=== PATIENT | female | born 1945 | race Caucasian/White ===

== ENCOUNTER → 2024-01-20 10:03 | Outpatient (REF) | payer MEDICARE, OTHER, SELFPAY ==
[2024-01-20 13:04] LABS: ALT (SGPT) 18 U/L (0-35); AST (SGOT) 21 U/L (14-36); Albumin 4.2 g/dl (3.5-5.0); Alkaline Phosphatase 106 U/L (38-126); Blood Urea Nitrogen 18 mg/dl (7-17); Calcium 9.9 mg/dl (8.4-10.2); Carbon Dioxide 25 mmol/L (22-30); Chloride 105 mmol/L (98-107); Glucose 91 mg/dl (70-99); HDL Cholesterol 60 mg/dl; LDL Cholesterol, Calculated 115 mg/dl; Potassium 4.5 mmol/L (3.5-5.1); Sodium 139 mmol/L (135-145); Total Bilirubin 0.4 mg/dl (0.2-1.3); Total Cholesterol 193 mg/dl (50-199); Total Protein 7.4 g/dl (6.3-8.2); Triglyceride 92 mg/dl (10-149); Very Low Density Lipoprotein 18 mg/dl (0-30); eGFR > 60.00
[2024-01-20 13:18] LABS: TSH Reflex To Free T4 3.14 uIU/ml (0.47-4.68)
[2024-01-20 13:28] LABS: % Basophils 1.2 % (0-2); % Eosinophils 2.4 % (0-6); % Immature Granulocytes 0.1 % (0-0.5); % Lymphocytes 34.4 % (20.5-51.1); % Monocytes 5.9 % (1.7-9.3); Absolute Basophils 0.1 10^3/uL (0-0.2); Absolute Eosinophils 0.2 10^3/uL (0-0.7); Absolute Lymphocytes 2.3 10^3/uL (1.2-3.4); Absolute Monocytes 0.4 10^3/uL (0.1-0.6); Absolute Neutrophils 3.8 10^3/uL (1.4-6.5); Hematocrit 42.2 % (37.0-47.0); Hemoglobin 14.1 g/dL (12.0-16.0); Mean Corp Hgb Conc. 33.4 g/dL (33.0-37.0); Mean Corpuscular Hgb 30.6 pg (27.0-31.0); Mean Corpuscular Volume 91.5 fL (81.0-99.0); Mean Platelet Volume 11.6 fL (7.4-10.4); Nucleated Red Blood Cells % 0 %; Platelet Count 288 10^3/uL (130-400); Red Blood Cell Count 4.61 10^6/uL (4.20-5.40); Red Cell Dist. Width 12.5 % (11.5-14.5); White Blood Cell Count 6.8 10^3/uL (4.8-10.8)
== END ==
LOC: HWLAB 10:03
PROVIDERS: ATTENDING PHYSICIAN Family Medicine
DX: E78.2 Mixed hyperlipidemia (principal); I10 Essential (primary) hypertension; E04.1 Nontoxic single thyroid nodule
CPT/HCPCS: 36415; 80053; 80061; 84443; 85025

== ENCOUNTER → 2024-02-23 13:34 | Outpatient (REF) | payer MEDICARE, OTHER, SELFPAY | LOC: HWRAD 13:34 | PROVIDERS: ATTENDING PHYSICIAN Family Medicine | DX: Z12.31 Encounter for screening mammogram for malignant neoplasm of breast (principal); M81.0 Age-related osteoporosis without current pathological fracture | CPT/HCPCS: 77063; 77067; 77080 ==

== ENCOUNTER → 2024-04-12 06:44 | Outpatient (REF) | payer MEDICARE, OTHER, SELFPAY ==
[2024-04-12 09:26] LABS: % Basophils 1.1 % (0-2); % Eosinophils 2.4 % (0-6); % Immature Granulocytes 0.3 % (0-0.5); % Lymphocytes 36.1 % (20.5-51.1); % Monocytes 6.3 % (1.7-9.3); % Neutrophils 53.8 % (42.2-75.2); Absolute Basophils 0.1 10^3/uL (0-0.2); Absolute Eosinophils 0.2 10^3/uL (0-0.7); Absolute Lymphocytes 2.4 10^3/uL (1.2-3.4); Absolute Monocytes 0.4 10^3/uL (0.1-0.6); Absolute Neutrophils 3.5 10^3/uL (1.4-6.5); Hematocrit 42.5 % (37.0-47.0); Hemoglobin 14.3 g/dL (12.0-16.0); Mean Corp Hgb Conc. 33.6 g/dL (33.0-37.0); Mean Corpuscular Hgb 30.6 pg (27.0-31.0); Mean Corpuscular Volume 90.8 fL (81.0-99.0); Mean Platelet Volume 10.9 fL (7.4-10.4); Nucleated Red Blood Cells % 0 %; Platelet Count 295 10^3/uL (130-400); Red Blood Cell Count 4.68 10^6/uL (4.20-5.40); Red Cell Dist. Width 12.4 % (11.5-14.5); White Blood Cell Count 6.5 10^3/uL (4.8-10.8)
[2024-04-12 09:45] LABS: Blood Urea Nitrogen 20 mg/dl (7-17); Calcium 9.7 mg/dl (8.4-10.2); Carbon Dioxide 30 mmol/L (22-30); Chloride 105 mmol/L (98-107); Glucose 95 mg/dl (70-99); Potassium 4.4 mmol/L (3.5-5.1); Sodium 142 mmol/L (135-145); eGFR > 60.00
== END ==
LOC: HWLAB 06:44
PROVIDERS: ATTENDING PHYSICIAN Orthopaedic Surgery; FAMILY PHYSICIAN Family Medicine
DX: Z01.818 Encounter for other preprocedural examination (principal)
CPT/HCPCS: 36415; 80048; 85025

== ENCOUNTER → 2024-05-05 10:55 | Outpatient (REF) | payer MEDICARE, OTHER, SELFPAY | LOC: RAD 10:55 | PROVIDERS: ATTENDING PHYSICIAN Internal Medicine Cardiovascular Disease; FAMILY PHYSICIAN Family Medicine | DX: R00.0 Tachycardia, unspecified (principal); R60.0 Localized edema; R60.9 Edema, unspecified | CPT/HCPCS: 36415; 80069; 84439; 84443; 93971 ==

== ENCOUNTER → 2024-05-16 08:24 | Outpatient (REF) | payer MEDICARE, OTHER, SELFPAY | LOC: HWRCS 08:24 | PROVIDERS: ATTENDING PHYSICIAN Internal Medicine Cardiovascular Disease; FAMILY PHYSICIAN Family Medicine | DX: R00.0 Tachycardia, unspecified (principal); R60.0 Localized edema; R94.31 Abnormal electrocardiogram [ECG] [EKG] | CPT/HCPCS: 93306 ==

== ENCOUNTER → 2024-07-21 07:15 | Outpatient (REF) | payer MEDICARE, OTHER, SELFPAY ==
[2024-07-21 10:21] LABS: ALT (SGPT) 17 U/L (0-35); AST (SGOT) 23 U/L (14-36); Albumin 4.2 g/dl (3.5-5.0); Alkaline Phosphatase 107 U/L (38-126); Blood Urea Nitrogen 21 mg/dl (7-17); Calcium 10.1 mg/dl (8.4-10.2); Carbon Dioxide 29 mmol/L (22-30); Chloride 105 mmol/L (98-107); Glucose 93 mg/dl (70-99); HDL Cholesterol 58 mg/dl; LDL Cholesterol, Calculated 137 mg/dl; Potassium 4.3 mmol/L (3.5-5.1); Sodium 143 mmol/L (135-145); Total Bilirubin 0.4 mg/dl (0.2-1.3); Total Cholesterol 218 mg/dl (50-199); Triglyceride 117 mg/dl (10-149); Very Low Density Lipoprotein 23 mg/dl (0-30); eGFR > 60.00
[2024-07-21 10:42] LABS: TSH Reflex To Free T4 2.95 uIU/ml (0.47-4.68)
== END ==
LOC: HWLAB 07:15
PROVIDERS: ATTENDING PHYSICIAN Family Medicine
DX: E04.1 Nontoxic single thyroid nodule (principal); E78.2 Mixed hyperlipidemia
CPT/HCPCS: 36415; 80053; 80061; 84443

== ENCOUNTER 2024-11-25 10:50 | Emergency (ER) | payer MEDICARE, OTHER, SELFPAY ==
[2024-11-25 11:04] VITALS: BP 159/74
--- NOTE | 2024-11-25 12:48 | ED.GENMED ---
History of Present Illness
<Joselyn Roach MD, Resident - Last Filed: 11/25/24 14:06>
General
Chief Complaint: Extremity Pain (non-traumatic)
Source: patient and family
Exam Limitations: none
Time Seen by Provider: 11/25/24 12:22
Nursing documentation reviewed up to this point in time: agreed with
History of Present Illness
History of Present Illness:
79yo F with [facility] arthritis, s/p R hip replacement 04/2024 who presents from home to ED for right foot pain/swelling. She denies inciting incident or recent injury to foot. The pain began a few days ago and was initially intermittent, then gradually
worsened became constant yesterday She also noticed worsening swelling over the past few days. She has tried ibuprofen, ice, and compression wrapping with slight relief. Aggravating factors include weight bearing, though she is still able to
ambulate using cane/walker. At time of evaluation, she and her say the pain/swelling improved slightly compared to last night. She denies anything like this in the past.
Past History
<Joselyn Roach MD, Resident - Last Filed: 11/25/24 14:06>
Past History
ED Past Medical History: Arrthythmia (chronic tachycardia), HTN and Other (arthritis)
ED Past Surgical History: Orthopedic (right hip replacement 04/2024)
Patient has exhibited threatening behavior?: No
Social History
Tobacco: Non-smoker
Alcohol: None
Drug: None
Personal:
Living: with family
Family History
Family History: Other (noncontributory)
Review of Systems
<Joselyn Roach MD, Resident - Last Filed: 11/25/24 14:06>
Review of Systems
Allergies reviewed?: Yes
Constitutional: Reports no symptoms; Denies fever or chills
EENT: Reports no symptoms
Respiratory: Reports no symptoms; Denies cough or trouble breathing
Cardiac: Reports no symptoms; Denies chest pain or palpitations
ABD/GI: Reports no symptoms; Denies abdominal pain, nausea, vomiting, diarrhea, constipated, bloody stools or black stools
: Reports no symptoms; Denies dysuria or incontinence
Musculoskeletal: Reports other (see HPI)
Skin: Reports no symptoms
Neurological: Reports no symptoms; Denies dizzy or weakness
Endocrine: Reports no symptoms
Hematologic/Lymphatic: Reports no symptoms
Psychiatric: Reports no symptoms
Phy Exam
<Joselyn Roach MD, Resident - Last Filed: 11/25/24 14:06>
Physical Exam
Physical Exam:
medial right foot with mild tenderness to palpation, erythema, slight edema
bilateral lower extremities with +1 pitting edema symmetric, 5/5 strength, ROM intact, sensation intact, dorsalis pedal pulses intact
no calf tenderness, alma rosa sign negative
General Physical Exam
General Presentation: well appearing and no apparent distress
General age: appears stated age
General Skin: warm and dry
General Habitus: normal
General Mental: alert
General Hydration: appears well hydrated
Cardiovascular Exam
Cardiovascular Exam: regular rate/rhythm and no murmur
Pulmonary Exam
Pulmonary Exam: lungs clear, no respiratory distress, no crackles, no wheezing and no cough
Oxygen Status: room air
Gastrointestinal Exam
Gastrointestinal Exam: normal bowel sounds, non tender, soft and non distended
Neurological Exam
Neurological Exam: alert, oriented x3, no motor deficits and no sensory deficits
Musculoskeletal Exam
Musculoskeletal Exam: full ROM
Psychiatric Exam
Psychiatric Exam: normal mood/affect
Course
<Joselyn Roach MD, Resident - Last Filed: 11/25/24 14:06>
Orders/Labs/Results
Orders:
Orders
11/25/24 11:07
CR Foot - Right Min 3 Views Urgent
Comment:
Reason For Exam: pain, swelling
11/25/24 13:28
Prednisone [Deltasone] 40 mg PO NOW STA
Vital Signs
Initial and Last Documented VS:
Initial Vital Signs
Temp Pulse Resp BP Pulse Ox
97.9 F 61 18 159/74 97
11/25/24 11:04 11/25/24 11:04 11/25/24 11:04 11/25/24 11:04 11/25/24 11:04
Last Documented Vital Signs
Temp Pulse Resp BP Pulse Ox
97.9 F 61 18 159/74 97
11/25/24 11:04 11/25/24 11:04 11/25/24 11:04 11/25/24 11:04 11/25/24 11:04
<Priscilla Hardy, DO - Last Filed: 11/25/24 13:36>
Orders/Labs/Results
Orders:
Orders
11/25/24 11:07
CR Foot - Right Min 3 Views Urgent
Comment:
Reason For Exam: pain, swelling
11/25/24 13:28
Prednisone [Deltasone] 40 mg PO NOW STA
Vital Signs
Initial and Last Documented VS:
Initial Vital Signs
Temp Pulse Resp BP Pulse Ox
97.9 F 61 18 159/74 97
11/25/24 11:04 11/25/24 11:04 11/25/24 11:04 11/25/24 11:04 11/25/24 11:04
Last Documented Vital Signs
Temp Pulse Resp BP Pulse Ox
97.9 F 61 18 159/74 97
11/25/24 11:04 11/25/24 11:04 11/25/24 11:04 11/25/24 11:04 11/25/24 11:04
<Joselyn Roach MD, Resident - Last Filed: 11/25/24 14:06>
MDM/Problems Addressed
Differential Diagnosis Includes:
Unclear etiology of right medial foot pain, possibly osteoarthritis vs tendonitis vs gout
Not suspicious for septic arthritis or cellulitis given appearance of foot and history
No history of trauma/injury to right foot, xray with no obvious fracture-- radiology report pending
MDM/Problems Addressed:
Suspect right medial foot pain due inflammation possibly from arthritis or gout
Recommend supportive measures such as ibuprofen, rest/elevation, supportive footwear
Can trial short course of steroids to reduce inflammation as well-- patient denies diabetes
Given low suspicion for infection, will defer antibiotics at this time. However patient and were counselled about return precautions such as worsening symptoms like redness/pain that may require antibiotics
Discussed above with patient and -- they are understanding and agreeable with plan
<Joselyn Roach MD, Resident - Last Filed: 11/25/24 14:06>
*Critical Care Note
Total Time (30-74mins, 75-104mins- exclusive of procedures): Not Applicable
<Joselyn Roach MD, Resident - Last Filed: 11/25/24 14:06>
Update Note
Update Note:
1400: Xray right foot radiology report negative for fracture, dislocation, bony destruction or periosteal reaction. Notes mild soft tissue swelling. Updated patient and .
ED Attending Note
<Joselyn Roach MD, Resident - Last Filed: 11/25/24 14:06>
-
Portions of this chart may have been created with voice recognition software.� Occasional wrong word or��sound alike� substitutions may have occurred due to the inherent limitations of voice recognition software.
<Priscilla Hardy DO - Last Filed: 11/25/24 13:36>
ED Attending Note
Patient seen and examined by attending physician: Yes
I performed the substantive portion of visit, reviewed & personally made and approve the management plan that is documented in note by myself or LOY.: Yes
I performed a history and physical exam of patient and discussed management with resident, I reviewed resident's note and agree with documented findings and plan of care.: Yes
ED Attending Note:
79-year-old female with history of arthritis presenting for right foot pain. Notes that pain started few days ago without any inciting injury or trauma. Pain worsened last night. Notes some swelling and redness to the medial aspect of the foot,
worse when bearing weight on her foot. Does note some interval improvement with ice and compression. Denies numbness or tingling. Denies any history of gout. Denies fever or systemic symptoms. Vitals on arrival significant for mild hypertension.
On exam, patient resting comfortably, no acute distress or discomfort. Mild swelling to the right foot, nonpitting. Slight area of erythema at the first metatarsal. Range of motion is intact. Distal sensation and pulses intact. Reproducible
tenderness at the first metatarsal. No deformity. Symptoms appear consistent with possible gout versus inflammatory arthritis. No concern for septic arthritis at this time. Very small amount of erythema without concern for cellulitis. X-ray
obtained without evidence of fracture or malalignment. Will trial NSAIDs and steroids. Otherwise feel stable for discharge with interval outpatient follow-up. Return precautions discussed and patient verbalized understanding
Discharge Plan
Departure
Patient Disposition: Home (Routine Discharge)
Date of Disposition: 11/25/24
Time of Disposition: 13:36
Patient with high blood pressure during this ER visit?: Yes
Discharge Problem:
Right foot pain
Instructions: Gout ED
Prescriptions:
New
ibuprofen 600 mg tablet
600 mg PO Q8H PRN (Reason: Pain) Qty: 20 0RF
prednisone 20 mg tablet
40 mg PO DAILY 5 Days Qty: 10 0RF
No Action
ibuprofen 600 MG tablet
600 mg PO Q6 Qty: 20 0RF
Referrals:
Albert Arenas MD [Family Provider] -
Activity Restrictions/Additional Instructions:
You were seen in the emergency department for right foot pain
We suspect that you have gout or an inflammatory arthritis. You were started on a steroid. Please take your steroid and ibuprofen as directed for pain
Please follow-up closely with your primary care physician. If your foot is becoming more swollen or increased redness with any development of numbness or tingling, please return immediately to the emergency department
Return to the emergency department for any worsening of your symptoms, or any development of chest pain, difficulty breathing, abdominal pain with persistent vomiting and inability to tolerate food or liquid by mouth (concern for dehydration),
weakness, headache or confusion, fever greater than 100.4, or any additional symptoms that are concerning to you.
Thank you for choosing [facility].
Interventions
Interventions:
*Risk Screen - Suicide Last Done: 11/25/24 11:04
*General Assessment Last Done: 11/25/24 11:04
*ED COVID-19 Vaccine History Last Done: 11/25/24 11:04
Discharge Date and Time
Print Language: [id number]
[2024-11-25] MEDS: DELTASONE 40 MG PO (13:34)
[2024-11-25 14:01] VITALS: BP 141/70
== END 2024-11-25 14:03 | disposition home or self-care (01) ==
LOC: EMR 10:50
PROVIDERS: EMERGENCY PHYSICIAN Student in an Organized Health Care Education/Training Program; FAMILY PHYSICIAN Family Medicine
DX: M79.671 Pain in right foot (principal); R60.0 Localized edema; M19.90 Unspecified osteoarthritis, unspecified site; I10 Essential (primary) hypertension; Z96.641 Presence of right artificial hip joint
CPT/HCPCS: 99283; 73630

== ENCOUNTER → 2025-02-27 08:05 | Outpatient (REF) | payer MEDICARE, OTHER, SELFPAY ==
[2025-02-27 09:27] LABS: % Basophils 1.3 % (0-2); % Eosinophils 2.8 % (0-6); % Immature Granulocytes 0.1 % (0-0.5); % Lymphocytes 37.2 % (20.5-51.1); % Monocytes 7.2 % (1.7-9.3); % Neutrophils 51.4 % (42.2-75.2); Absolute Basophils 0.1 10^3/uL (0-0.2); Absolute Eosinophils 0.2 10^3/uL (0-0.7); Absolute Lymphocytes 2.8 10^3/uL (1.2-3.4); Absolute Monocytes 0.5 10^3/uL (0.1-0.6); Absolute Neutrophils 3.8 10^3/uL (1.4-6.5); Hematocrit 44.4 % (37.0-47.0); Hemoglobin 14.4 g/dL (12.0-16.0); Mean Corp Hgb Conc. 32.4 g/dL (33.0-37.0); Mean Corpuscular Hgb 30.6 pg (27.0-31.0); Mean Corpuscular Volume 94.5 fL (81.0-99.0); Mean Platelet Volume 10.6 fL (7.4-10.4); Nucleated Red Blood Cells % 0 %; Platelet Count 281 10^3/uL (130-400); Red Cell Dist. Width 12.3 % (11.5-14.5); White Blood Cell Count 7.5 10^3/uL (4.8-10.8)
[2025-02-27 09:51] LABS: ALT (SGPT) 20 U/L (0-35); AST (SGOT) 21 U/L (14-36); Albumin 3.8 g/dl (3.5-5.0); Alkaline Phosphatase 98 U/L (38-126); Blood Urea Nitrogen 19 mg/dl (7-17); Carbon Dioxide 31 mmol/L (22-30); Chloride 105 mmol/L (98-107); Glucose 95 mg/dl (70-99); HDL Cholesterol 58 mg/dl; LDL Cholesterol, Calculated 136 mg/dl; Potassium 4.6 mmol/L (3.5-5.1); Sodium 143 mmol/L (135-145); Total Bilirubin 0.5 mg/dl (0.2-1.3); Total Cholesterol 217 mg/dl (50-199); Total Protein 6.9 g/dl (6.3-8.2); Triglyceride 116 mg/dl (10-149); Very Low Density Lipoprotein 23 mg/dl (0-30); eGFR > 60.00
== END ==
LOC: HWLAB 08:05
PROVIDERS: ATTENDING PHYSICIAN Family Medicine
DX: E78.2 Mixed hyperlipidemia (principal); I10 Essential (primary) hypertension; E04.1 Nontoxic single thyroid nodule
CPT/HCPCS: 36415; 80053; 80061; 84443; 85025

== ENCOUNTER → 2025-05-15 10:17 | Outpatient (REF) | payer MEDICARE, OTHER, SELFPAY | LOC: HWWDC 10:17 | PROVIDERS: ATTENDING PHYSICIAN Family Medicine | DX: Z12.31 Encounter for screening mammogram for malignant neoplasm of breast (principal) | CPT/HCPCS: 77063; 77067 ==

== ENCOUNTER → 2025-08-30 07:09 | Outpatient (REF) | payer MEDICARE, OTHER, SELFPAY ==
[2025-08-30 10:13] LABS: Hematocrit 44.9 % (37.0-47.0); Hemoglobin 14.5 g/dL (12.0-16.0); Mean Corp Hgb Conc. 32.3 g/dL (33.0-37.0); Mean Corpuscular Volume 94.1 fL (81.0-99.0); Nucleated Red Blood Cells % 0 %; Platelet Count 307 10^3/uL (130-400); Red Cell Dist. Width 12.0 % (11.5-14.5)
[2025-08-30 10:42] LABS: ALT (SGPT) 24 U/L (0-35); AST (SGOT) 23 U/L (14-36); Albumin 4.3 g/dl (3.5-5.0); Alkaline Phosphatase 113 U/L (38-126); Blood Urea Nitrogen 21 mg/dl (7-17); Calcium 9.7 mg/dl (8.4-10.2); Carbon Dioxide 30 mmol/L (22-30); Chloride 103 mmol/L (98-107); Glucose 96 mg/dl (70-99); HDL Cholesterol 58 mg/dl; LDL Cholesterol, Calculated 141 mg/dl; Potassium 4.2 mmol/L (3.5-5.1); Sodium 138 mmol/L (135-145); Total Protein 7.7 g/dl (6.3-8.2); Very Low Density Lipoprotein 28 mg/dl (0-30); eGFR > 60.00
== END ==
LOC: HWLAB 07:09
PROVIDERS: ATTENDING PHYSICIAN Family Medicine
DX: E78.2 Mixed hyperlipidemia (principal); I10 Essential (primary) hypertension; E04.1 Nontoxic single thyroid nodule
CPT/HCPCS: 36415; 80053; 80061; 84443; 85025